=== PATIENT | male | born 1980 | race Caucasian/White ===

== ENCOUNTER 2022-05-12 19:11 | Emergency (ER) | payer MEDICAID ==
[~2022-05-12] VITALS: Ht 198.1 cm; Wt 84.1 kg
[2022-05-12] MEDS ORDERED: HYDROcodone/acetaminophen 5mg/325mg tablet PO ONE ×2 (20:50→21:25)
[2022-05-12] MEDS ORDERED: LIDOcaine 1% 30ml preserv. free vial IJ STA (22:23)
[2022-05-12] MEDS ORDERED: HYDR-3965 PO (23:12)
[2022-05-12 23:37] VITALS: BP 129/89
== END 2022-05-12 23:40 | disposition home or self-care (01) ==
LOC: ER 19:13
DX: S52.501A Unspecified fracture of the lower end of right radius, initial encounter for closed fracture (principal); S20.211A Contusion of right front wall of thorax, initial encounter; W18.39XA Other fall on same level, initial encounter; Y93.89 Activity, other specified; Y92.89 Other specified places as the place of occurrence of the external cause; Y99.8 Other external cause status
CPT/HCPCS: 29125; 71250; 73110; 99284